=== PATIENT | male | born 1940 | race Two or more races ===

== ENCOUNTER 2017-03-19 12:09 | Inpatient (IN) | payer MEDICARE, BC ==
[~2017-03-19] VITALS: Ht 182.9 cm; Wt 66.2 kg
--- NOTE | 2017-03-19 12:15 | NUR ---
[id number] FROM HOME,PT STS HE FELT WEAK AND FELL TO HIS KNEES. DENIES HITTING HIS HEAD, BS-121. AOX 4. BREATHING EVEN AND UNLABORED. NO SOB. VITALS STABLE. NO NEURO DEFICITS. SAFETY AND COMFORT MEASURES IN PLACE. AWAITING MD ORDERS.
--- NOTE | 2017-03-19 12:45 | NUR ---
NEW IV STARTED ON LEFT UPPER ARM, 20 G. BLOOD DRAWN AND SENT TO LAB.
[2017-03-19 12:50] LABS: BASOPHILS # (AUTO) 0.1 /CMM (0.0-0.2); BASOPHILS % (AUTO) 0.6 % (0.0-2.0); EOSINOPHILS % (AUTO) 0.2 % (0.0-6.0); HEMATOCRIT 45 % (39-51); HEMOGLOBIN 15.3 g/dL (13.5-17.5); LYMPHOCYTES # (AUTO) 1.2 /CMM (0.8-4.8); LYMPHOCYTES % (AUTO) 13.3 % (20.0-44.0); MEAN CORPUSCULAR HEMOGLOBIN 32 PG (26.0-33.0); MEAN CORPUSCULAR HGB CONC 34 g/dl (31.0-36.0); MEAN CORPUSCULAR VOLUME 96 fL (80-96); MONOCYTES # (AUTO) 0.5 /CMM (0.1-1.30); MONOCYTES % (AUTO) 5.8 % (2.0-12.0); NEUTROPHILS # (AUTO) 7.1 /CMM (1.8-8.9); NEUTROPHILS % (AUTO) 80.1 % (43.0-81.0); PLATELET COUNT (AUTO) 196 /CMM (150-450); RDW COEFFICIENT OF VARIATION 12.9 (11.5-15.0); RED BLOOD CELL COUNT(AUTO) 4.74 MIL/uL (4.5-6.0); WHITE BLOOD COUNT (AUTO) 8.9 K/uL (4.3-11.0)
[2017-03-19 13:01] LABS: CALCIUM, SERUM 9.5 mg/dL (8.5-10.1); CARBON DIOXIDE 28 mmol/L (21-32); CHLORIDE 104 mmol/L (98-107); CREATININE 1.7 mg/dL (0.6-1.3); GLUCOSE 123 mg/dL (74-106); POTASSIUM 4.5 mmol/L (3.5-5.1); SODIUM SERUM 141 mmol/L (136-145); UREA NITROGEN, BLOOD 37 mg/dL (7-18)
[2017-03-19 13:07] LABS: ALANINE AMINOTRANSFERASE 25 U/L (12-78); ALBUMIN 4.1 g/dL (3.4-5.0); ALKALINE PHOSPHATASE 69 U/L (46-116); ASPARTATE AMINOTRANSFERASE 19 U/L (15-37); BILIRUBIN,DIRECT 0.1 mg/dL (0.0-0.2); BILIRUBIN,TOTAL 0.6 mg/dL (0.2-1.0); TOTAL PROTEIN, SERUM 7.2 g/dL (6.4-8.2)
[2017-03-19 13:08] LABS: INR 1.02 (0.87-1.13)
[2017-03-19 13:09] LABS: TROPONIN I < 0.017 ng/mL (0.00-0.056)
--- NOTE | 2017-03-19 13:15 | NUR ---
LIBRARIAN HEAD AT BEDSIDE.
[2017-03-19] MEDS ORDERED: IV NS 0.9% 500 ML BAG IV ONE (14:00)
[2017-03-19 15:08] LABS: APPEARANCE,URINE Clear (CLEAR); BILIRUBIN,URINE Negative (NEGATIVE); BLOOD, URINE Negative Ery/uL (NEGATIVE); COLOR,URINE Yellow (YELLOW); KETONES,URINE Trace (NEGATIVE); LEUKOCYTE ESTERASE ,URINE Negative (NEGATIVE); NITRITE, URINE Negative (NEGATIVE); PROTEIN,URINE Negative (NEGATIVE); UGLUCOSE Negative (NEGATIVE); UROBILINOGEN,URINE 0.2 EU/dL (0.2)
[2017-03-19 15:14] LABS: BACTERIA,URINE Rare /HPF (None Seen); RBC,URINE 0-2 /HPF (0-2); SQUAMOUS EPITHELIAL CELL,UR Few /HPF (None Seen); WBC,URINE 0-2 /HPF (0-3)
[2017-03-19] MEDS ORDERED: AZEL137S7 BNOSTRILS (16:09)
[2017-03-19] MEDS ORDERED: ALLO100T PO (16:09)
[2017-03-19] MEDS ORDERED: VALS1TAB2 PO (16:09)
[2017-03-19] MEDS ORDERED: LATA2.5D7 EACHEYE (16:09)
[2017-03-19] MEDS ORDERED: IV NS 0.9% 1,000 ML IV PRN (17:18)
[2017-03-19] MEDS ORDERED: Z GUARD REMEDY 2 OZ OINT TP PRN (17:30)
[2017-03-19] MEDS ORDERED: ACETAMINOPHEN 325 MG TABLET PO PRN (17:30)
[2017-03-19] MEDS ORDERED: ONDANSETRON HCL/PF 4 MG/2 ML VIAL IVP PRN (17:30)
[2017-03-19] MEDS ORDERED: ZOLPIDEM TARTRATE 5 MG TABLET PO PRN (17:30)
[2017-03-19] MEDS ORDERED: HYDROCODONE/APAP 5/325MG 1 EACH TABLET PO PRN (17:30)
[2017-03-19] MEDS ORDERED: MAGNESIUM HYDROXIDE 30 ML UDC PO PRN (17:30)
[2017-03-19] MEDS ORDERED: MAG HYDROX/AL HYDROX/SIMETH 30 ML UDC PO PRN (17:30)
--- NOTE | 2017-03-19 17:40 | NUR ---
RN NOTES: PATIENT ARRIVED FROM ER TO 3 WEST. REPORT TAKEN FROM CHACE JOHNSON. PATIENT STABLE. NONLABORED BREATHING NOTED ON ROOM AIR. NO SIGNS OF DISTRESS. PATIENT DENIES CHEST PAIN, DIZZINESS. VS WNL: BP 134/71, HR 68, SPO2 98% ON ROOM AIR, TEMPERATURE 97.6F. PATIENT ON TELE MONITOR WITH SINUS RHTHYM NOTED. SKIN ASSESSMENT DONE AND DOCUMENTED. PATIENT REFUSING PICTURES TO BE TAKEN. PATIENT DENIES NAUSEA AND VOMITING. IV SITE ON LEFT FOREARM 20 PATENT AND INTACT. BED IN LOWEST LOCKED POSITION.CALL LIGHT WITHIN REACH WILL CONTINUE TO MONITOR
[2017-03-19] MEDS: ENOXAPARIN SODIUM 40 MG/0.4 ML DISP.SYRIN SQ SCH (18:38)
--- NOTE | 2017-03-19 19:20 | NUR ---
RN NOTES: PATIENT RESTING IN BED. NONLABORED BREATHING NOTED ON ROOM AIR. PATIENT DENIES PAIN. IV SITE PATENT AND INTACT. BED IN LOWEST LOCKED POSITION. CALL LIGHT WITHIN REACH. ORDERED SANDWICH FROM KITCH[employer]. ACCORDING TO PATIENT AND HIS , THEY ATE DINNER IN THE ER. PATIENT KEPT CLEAN AND DRY. IV FLUIDS RUNNING. TELE READING, SR. ENDORSED TO NEXT SHIFT
--- NOTE | 2017-03-19 19:40 | NUR ---
RN OPENING NOTES PT RESTING IN BED. NO COMPLAINTS OF PAIN OR DISCOMFORT. NO SOB. PT HAS A FREDDY IV RUNNING NS @75ML/HR. PT TOLERATING FLUID WELL. PT TELE MONITORED SINUS RHYTHM. SAFETY PRECAUTIONS IN PLACE. BED IN LOW, LOCKED POSITION, 2XSIDERAILS UP. WILL CONTINUE TO MONITOR.
[2017-03-19 20:00] VITALS: BP 135/68
[2017-03-19] MEDS: LATANOPROST EYE DROP 0.005% 2.5 ML BOTTLE EACHEYE SCH (22:00)
[2017-03-20] VITALS: BP 120/65
[2017-03-20 04:00] VITALS: BP 124/67
[2017-03-20 07:28] LABS: BASOPHILS % (AUTO) 0.3 % (0.0-2.0); EOSINOPHILS % (AUTO) 0.5 % (0.0-6.0); HEMATOCRIT 45 % (39-51); HEMOGLOBIN 14.6 g/dL (13.5-17.5); LYMPHOCYTES % (AUTO) 22.2 % (20.0-44.0); MEAN CORPUSCULAR HEMOGLOBIN 32 PG (26.0-33.0); MEAN CORPUSCULAR HGB CONC 33 g/dl (31.0-36.0); MEAN CORPUSCULAR VOLUME 97 fL (80-96); MONOCYTES # (AUTO) 0.8 /CMM (0.1-1.30); MONOCYTES % (AUTO) 8.3 % (2.0-12.0); NEUTROPHILS # (AUTO) 6.3 /CMM (1.8-8.9); NEUTROPHILS % (AUTO) 68.7 % (43.0-81.0); PLATELET COUNT (AUTO) 196 /CMM (150-450); RDW COEFFICIENT OF VARIATION 13.8 (11.5-15.0); RED BLOOD CELL COUNT(AUTO) 4.61 MIL/uL (4.5-6.0); WHITE BLOOD COUNT (AUTO) 9.2 K/uL (4.3-11.0)
--- NOTE | 2017-03-20 07:29 | NUR ---
RN CLOSING NOTES PT RESTING IN BED. AT BEDSIDE. NO COMPLAINTS OF PAIN OR DISCOMFORT. NO SOB. NO DIZZINESS OR SYNCOPE NOTED THROUGHOUT THE SHIFT. PT HAS A FREDDY IV RUNNING NS @75ML/HR. PT TOLERATING FLUID WELL. PT TELE MONITORED SINUS RHYTHM. SAFETY PRECAUTIONS IN PLACE. BED IN LOW, LOCKED POSITION, 2XSIDERAILS UP. WILL ENDORSE TO DAY SHIFT NURSE FOR CONTINUITY OF CARE.
--- NOTE | 2017-03-20 07:30 | NUR ---
MS RN OPENING NOTES RECEIVED PATIENT IN STABLE CONDITION. IN NO APPARENT DISTRESS. PATIENT IS ALERT AND RESTING IN BED. BEDSIDE RAILS ARE UP X2. BED IS LOCKED AND LOWERED. CALL LIGHT IS WITHIN REACH. WILL CONTINUE TO MONITOR.
[2017-03-20 08:00] VITALS: BP 128/72
[2017-03-20 08:03] LABS: CALCIUM, SERUM 8.8 mg/dL (8.5-10.1); CARBON DIOXIDE 24 mmol/L (21-32); CHLORIDE 108 mmol/L (98-107); CREATININE 1.4 mg/dL (0.6-1.3); GLUCOSE 108 mg/dL (74-106); MAGNESIUM 2.2 mg/dL (1.8-2.4); PHOSPHORUS 2.9 mg/dL (2.5-4.9); SODIUM SERUM 142 mmol/L (136-145); UREA NITROGEN, BLOOD 32 mg/dL (7-18)
[2017-03-20 08:50] LABS: THYROID STIMULATING HORMONE 1.806 uIU/mL (0.358-3.74)
[2017-03-20] MEDS: ALLOPURINOL 100 MG TABLET PO SCH (10:31)
[2017-03-20] MEDS: AZELASTINE NASAL SPRAY 30 ML BOTTLE NS SCH ×2 (10:31→16:28)
[2017-03-20] MEDS: IV NS 0.9% 1,000 ML IV SCH ×2 (10:31→13:14)
[2017-03-20 16:00] VITALS: BP 128/72
--- NOTE | 2017-03-20 19:00 | NUR ---
ZOOLOGY TECHNICAL OFFICER CLOSING NOTES PATIENT IS IN STABLE CONDITION. IN NO APPARENT DISTRESS. PATIENT IS ALERT AND RESTING IN BED. ALL NEEDS WERE MET. BEDSIDE RAILS ARE UP X2. BED IS LOCKED AND LOWERED. CALL LIGHT IS WITHIN REACH. WILL ENDORSE CARE TO REGULATORY AFFAIRS INTERN NURSE FOR MARCUS.
--- NOTE | 2017-03-20 19:42 | NUR ---
tele/rn opening notes PATIENT IN BED, ALERT, ORIENTED X3. ABLE TO VERBALIZE NEEDS AND RESTING COMFORTABLY IN BED. RESPIRATIONS EVEN AND UNLABORED. SKIN WARM TO TOUCH, DENIES PAIN. CALL LIGHTS WITHIN REACH. BED IN LOCK POSITION. WILL CONTINUE TO MONITOR.
[2017-03-20 20:00] VITALS: BP 132/65
[2017-03-20] MEDS: ENOXAPARIN SODIUM 40 MG/0.4 ML DISP.SYRIN SQ SCH (21:21)
[2017-03-20] MEDS: LATANOPROST EYE DROP 0.005% 2.5 ML BOTTLE EACHEYE SCH (21:33)
--- NOTE | 2017-03-20 22:00 | NUR ---
tele/rn notes patient proviided snacks per request, assisted to bathroom for safety. observed mottle of prescription medication in his belongings and informed policy for medication to be kept in pharmacy safe, patient family will come and bring it home and informed charge nurse to f/u am .
[2017-03-21] VITALS: BP_SYST 137; BP_SYST 140; BP_DIAS 58; BP_DIAS 89
[2017-03-21 04:00] VITALS: BP 126/66
--- NOTE | 2017-03-21 06:46 | NUR ---
TELE/RN NOTES PATIENT ON TELEMONITORING, SR AT 70. ALERT, ORIENTED X4, VERBALIOZE NEEDS AT ALL TIMES, ABLE TO AMBULATE WITH ASSISTANCE, DENIES ANY PAIN OR DIZZINESS. ABLE TO SLEEP DURING THE NIGHT, DISCUSSED CARE WITH EH MORENO D/C BY LUNA OVER THE PHONE, INFORM EF 55% LAST echo WITH F/U STRESS TEST OUTPATIENT NEXT WEEK.WILL F/U DC PLANNING IN AM. WILL ENDORSE TO AM RN FOR MARCUS.
--- NOTE | 2017-03-21 07:15 | NUR ---
RN OPENING NOTES RECEIVED PATIENT UP IN BED, AWAKE, ALERT AND ORIENTED X 4, NO C/O PAIN AT THIS TIME, NO SOB NOTED, DENIES ANY DIZZINESS. ALL PATIENT'S NEEDS ATTENDED TO, PLACED CALL LIGHT WITHIN EASY REACH. WILL CONTINUE TO MONITOR.
[2017-03-21 08:00] VITALS: BP 133/66
[2017-03-21 08:22] LABS: CALCIUM, SERUM 8.7 mg/dL (8.5-10.1); CARBON DIOXIDE 23 mmol/L (21-32); CHLORIDE 110 mmol/L (98-107); CREATININE 1.3 mg/dL (0.6-1.3); GLUCOSE 103 mg/dL (74-106); PHOSPHORUS 2.9 mg/dL (2.5-4.9); POTASSIUM 3.9 mmol/L (3.5-5.1); SODIUM SERUM 142 mmol/L (136-145); UREA NITROGEN, BLOOD 29 mg/dL (7-18)
[2017-03-21 08:30] VITALS: BP_SYST 138; BP_SYST 143; BP_SYST 151; BP_DIAS 73; BP_DIAS 75
[2017-03-21 08:44] LABS: BASOPHILS % (AUTO) 0.4 % (0.0-2.0); EOSINOPHILS # (AUTO) 0.1 /CMM (0.0-0.7); EOSINOPHILS % (AUTO) 0.8 % (0.0-6.0); HEMATOCRIT 44 % (39-51); HEMOGLOBIN 14.4 g/dL (13.5-17.5); LYMPHOCYTES # (AUTO) 1.7 /CMM (0.8-4.8); MEAN CORPUSCULAR HEMOGLOBIN 32 PG (26.0-33.0); MEAN CORPUSCULAR HGB CONC 33 g/dl (31.0-36.0); MEAN CORPUSCULAR VOLUME 98 fL (80-96); MONOCYTES # (AUTO) 0.7 /CMM (0.1-1.30); MONOCYTES % (AUTO) 8.8 % (2.0-12.0); PLATELET COUNT (AUTO) 177 /CMM (150-450); RDW COEFFICIENT OF VARIATION 13.9 (11.5-15.0); RED BLOOD CELL COUNT(AUTO) 4.55 MIL/uL (4.5-6.0); WHITE BLOOD COUNT (AUTO) 7.5 K/uL (4.3-11.0)
[2017-03-21] MEDS: ALLOPURINOL 100 MG TABLET PO SCH (09:02)
[2017-03-21] MEDS: AZELASTINE NASAL SPRAY 30 ML BOTTLE NS SCH (09:02)
--- NOTE | 2017-03-21 13:45 | NUR ---
TEST GRADER NOTES PATIENT UP IN BED, AWAKE, ALERT AND ORIENTED X 4 WITH FORGETFULNESS, NO SOB NOTED, BREATHING EVEN AND UNLABORED, NO SIGNS AND SYMPTOMS OF ACUTE DISTRESS. DISCHARGE INSTRUCTIONS GIVEN TO PATIENT AND VERBALIZED UNDERSTANDING, SKIN IS CLEAR AND INTACT, PT REFUSED PICTURES TO BE TAKEN, ALL BELONGINGS COMPLETE. REQUESTING FOR A CD COPY OF CT OF BRAIN AND CXR. AWAITING FOR RADIOLOGY TO PROVIDE.
--- NOTE | 2017-03-21 14:30 | NUR ---
D/C NOTE CD COPY OF 2D ECHO, CXR AND CT OF BRAIN RECEIVED FROM RADIOLOGY. PT ABLE TO AMBULATE INDEPENDENTLY TO DOORWAY OF ROOM. EXITED FACILITY SAFELY VIA WHEELCHAIR IN STABLE CONDITION, NO SOB, DENIES ANY PAIN, NO DIZZINESS, NO SIGNS OF ACUTE DISTRESS. SAFELY TRANSFERRED FROM WHEELCHAIR TO PRIVATE CAR.
== END 2017-03-21 14:30 | disposition home or self-care (01) | DRG 684 ==
LOC: ER 12:11 → TELE 17:09 → MED 03-21 09:14
PROVIDERS: ADMIT Internal Medicine; ATTEND Internal Medicine
DX: N17.0 Acute kidney failure with tubular necrosis (principal); E86.0 Dehydration; W18.2XXA Fall in (into) shower or empty bathtub, initial encounter; I12.9 Hypertensive chronic kidney disease with stage 1 through stage 4 chronic kidney disease, or unspecified chronic kidney disease; M10.9 Gout, unspecified; Z90.79 Acquired absence of other genital organ(s); Y93.E1 Activity, personal bathing and showering; Y92.002 Bathroom of unspecified non-institutional (private) residence as the place of occurrence of the external cause; N18.9 Chronic kidney disease, unspecified
CPT/HCPCS: 36415; 70450-TC; 71010-TC; 80048-TC; 80061-TC; 80076-TC; 81000-TC; 82306; 83735-TC; 84100-TC; 84439-TC; 84443-TC; 84484-TC; 85025-TC; 85730-TC; 87081-TC; 93307-TC; A4606; J1650; J7030; J7040; Z7610

== ENCOUNTER 2021-06-12 04:42 | Emergency (ER) | payer MEDICARE, BC ==
[~2021-06-12] VITALS: Ht 177.8 cm; Wt 77.1 kg
[~2021-06-12 04:42] MED LIST: ALLO100T PO; AZEL137S7 BNOSTRILS; LATA2.5D15 EACHEYE; VALS1TAB2 PO
--- NOTE | 2021-06-12 05:00 | NUR ---
[id number] FROM HOME C/O WITNESSED GLF HIT BACK OF HEAD +HEMATOMA "GOT OUT OF BED, FELT DIZZY FELL ON BACK OF HEAD" -KO -BLOOD THINNERS. PATIENT IS A/OX 2, RR EVEN AND UNLABORED, NO SOB NOTED. PATIENT CONNECTED TO MONITORS.
--- NOTE | 2021-06-12 05:09 | NUR ---
PT TAKEN TO CT VIA SAVI
[2021-06-12] MEDS ORDERED: LORAZEPAM INJ 2 MG/ML VIAL ONE (06:13)
[2021-06-12 06:25] LABS: BASOPHILS % (AUTO) 0.3 % (0.0-2.0); EOSINOPHILS % (AUTO) 0.2 % (0.0-6.0); HEMATOCRIT 45 % (39-51); HEMOGLOBIN 14.5 g/dL (13.5-17.5); LYMPHOCYTES # (AUTO) 0.9 K/uL (0.8-4.8); LYMPHOCYTES % (AUTO) 5.9 % (20.0-44.0); MEAN CORPUSCULAR HGB CONC 33 g/dl (31.0-36.0); MEAN CORPUSCULAR VOLUME 95 fL (80-96); MONOCYTES % (AUTO) 6.2 % (2.0-12.0); NEUTROPHILS # (AUTO) 13.4 K/uL (1.8-8.9); NEUTROPHILS % (AUTO) 87.4 % (43.0-81.0); PLATELET COUNT (AUTO) 187 K/uL (150-450); RED BLOOD CELL COUNT(AUTO) 4.69 MIL/uL (4.5-6.0); WHITE BLOOD COUNT (AUTO) 15.4 K/uL (4.3-11.0)
[2021-06-12] MEDS ORDERED: LORAZEPAM INJ 2 MG/ML VIAL IV ONE (06:30)
--- NOTE | 2021-06-12 07:19 | NUR ---
lab called for chem results
--- NOTE | 2021-06-12 08:12 | NUR ---
CALLED MAIN LAB TO FOLLOW UP ON LAB RESULT.
[2021-06-12 08:14] LABS: CALCIUM, SERUM 9.7 mg/dL (8.5-10.1); CARBON DIOXIDE 26 mmol/L (21-32); CHLORIDE 107 mmol/L (98-107); CREATININE 1.9 mg/dL (0.6-1.3); GLUCOSE 81 mg/dL (74-106); POTASSIUM 4.5 mmol/L (3.5-5.1); SODIUM SERUM 141 mmol/L (136-145); UREA NITROGEN, BLOOD 41 mg/dL (7-18)
[2021-06-12 08:15] LABS: ALANINE AMINOTRANSFERASE 54 U/L (12-78); ALBUMIN 3.7 g/dL (3.4-5.0); ALKALINE PHOSPHATASE 136 U/L (46-116); ASPARTATE AMINOTRANSFERASE 33 U/L (15-37); BILIRUBIN,DIRECT 0.1 mg/dL (0.0-0.2); BILIRUBIN,TOTAL 0.4 mg/dL (0.2-1.0); TOTAL PROTEIN, SERUM 6.9 g/dL (6.4-8.2)
--- NOTE | 2021-06-12 08:58 | NUR ---
DC TO CHANG IN STABLE CONDITION
--- NOTE | 2021-06-12 08:58 | NUR ---
IV removed. Catheter intact and site benign. Pressure and 4x4 applied to site. No bleeding noted.Patient discharged to home in stable condition. Written and verbal after care instructions given. Patient verbalizes understanding of instruction.
[2021-06-12 08:59] VITALS: BP 134/72
== END 2021-06-12 08:59 | disposition home or self-care (01) ==
LOC: ER 04:46
DX: S09.90XA Unspecified injury of head, initial encounter (principal); E86.0 Dehydration; G30.9 Alzheimer's disease, unspecified; F02.80 Dementia in other diseases classified elsewhere, unspecified severity, without behavioral disturbance, psychotic disturbance, mood disturbance, and anxiety; I10 Essential (primary) hypertension; Z79.899 Other long term (current) drug therapy; W19.XXXA Unspecified fall, initial encounter; Y93.89 Activity, other specified; Y92.098 Other place in other non-institutional residence as the place of occurrence of the external cause; Y99.8 Other external cause status
CPT/HCPCS: 36415; 70450; 71045; 72125; 80048; 80076; 84484; 85025; 85730; 93005; 96374; 99285; J2060; L0172